=== PATIENT | male | born 1990 | race Caucasian/White ===

== ENCOUNTER 2017-06-17 08:11 | Emergency (ER) | payer BC, OTHER ==
[2017-06-17] MEDS ORDERED: KETOROLAC 30 MG/ML INJ ONE (09:50)
[2017-06-17] MEDS ORDERED: DIAZEPAM 10 MG/2 ML INJ SYRINGE ONE (09:51)
[2017-06-17 10:02] LABS: Urine Blood NEGATIVE (NEG); Urine Glucose NEGATIVE (NEG); Urine Protein NEGATIVE (NEG); Urine Specific Gravity 1.025 (1.005-1.030)
--- NOTE | 2017-06-17 10:19 | RAD REPORT ---
EXAM DESCRIPTION: CT - Spine Lumbar Wo Con - 06/17/2017 9:56 am CLINICAL HISTORY: Trauma, back pain, radiculopathy. COMPARISON: None. TECHNIQUE: Axial noncontrast CT imaging of the lumbar spine was performed with coronal and sagittal re-formatted images. All CT scans are performed using dose optimization technique as appropriate and may include automated exposure control or mA/KV adjustment according to patient size. FINDINGS: No acute lumbar spine fracture seen. No aggressive marrow pattern or malalignment. Evidenc e of previous right hemilaminectomy at L5. Paraspinal tissues are normal in thickness. No paraspinal abscess or hematoma seen. Posterior disc bulge asymmetric to the left is present at L4-5. 3-4 mm disc bulge small endplate oste ophytes at L5-S1. Within these limitations, no high-grade canal stenosis suspected. IMPRESSION: No acute lumbar spine findings. Prominent posterior disc bulges suspected at L4-5 and L5-S1. Right hemilaminectomy at L5. Consider MRI follow-up for assessment of disc disease if clinically desired.
[2017-06-17 10:32] LABS: Absolute Lymphocytes (CBC) 1.3 K/uL (0.7-4.9); Absolute Monocytes 0.4 K/uL (0.1-1.3); Absolute Neutrophil 2.9 K/uL (1.8-8.0); Basophils % 0.9 % (0-1.3); Eosinophils % 1.2 % (0-4.4); Hematocrit 44.9 % (39.6-49.0); Lymphocytes % 27.9 % (15.3-44.8); MCH 32.4 pg (27.0-35.0); MCV 92.3 fL (80-100); MPV 8.8 fL (7.6-11.3); Monocytes % 8.2 % (3.3-12.3); RBC Red Blood Cell Count 4.86 M/uL (4.33-5.43)
[2017-06-17] MEDS ORDERED: DEXAMETHASONE 10 MG/ML VIAL ONE (10:34)
[2017-06-17] MEDS ORDERED: FENTANYL CITR 100 MCG/2 ML ONE (10:35)
[2017-06-17 10:45] LABS: Albumin 4.7 g/dL (3.2-5.5); Bilirubin Total 1.6 mg/dL (0.3-1.2); Protein, Total 7.2 g/dL (6.0-8.3)
[2017-06-17 10:57] LABS: Urine Bacteria <20 /HPF (NONE SEEN); Urine Culture Reflex Order NOT NEEDED; Urine RBC <5 /HPF (NONE SEEN)
--- NOTE | 2017-06-17 11:43 | EDPHYS ---
Physician Documentation [facility] Name: Kyrie Brandon Jr Age: 27 yrs Sex: Male : 1990 Arrival Date: 06/17/2017 Time: 08:14 Bed 10 Private MD: None, None ED Physician Maury Herrera HPI: 06/17 11:28 This 27 yrs old Male presents to ER via Ambulatory with complaints of Back wa Pain. 11:28 The patient presents with pain that is acute, and an injury. The symptoms are located wa in the low back, radiates down L leg. Onset: The symptoms/episode began/occurred 3 day(s) ago. The pain radiates to the R leg. Associated signs and symptoms: Pertinent positives: nausea, tingling, down R leg, Pertinent negatives: abdominal pain, dysuria, incontinence, nausea, vomiting, weakness. The problem was sustained when lifting heavy object. Modifying factors: The patient symptoms are alleviated by nothing, the patient symptoms are aggravated by lifting, movement, walking. Severity of symptoms: At their worst the symptoms were moderate, in the emergency department the symptoms are actually worse, moderately. The patient has experienced similar episodes in the past. The patient has not recently seen a physician. Historical: - Allergies: 08:41 No Known Allergies; iw - Home Meds: 08:41 None [Active]; iw - PMHx: 08:41 None; iw - PSHx: 08:41 Back surgery; iw - Immunization history:: Adult Immunizations up to date. - Social history:: Smoking status: Patient uses tobacco products, vape. - Family history:: not pertinent. - Hospitalizations: : No recent hospitalization is reported. ROS: 11:36 Constitutional: Negative for fever, chills, and weight loss, Eyes: Negative for injury, wa pain, redness, and discharge, ENT: Negative for injury, pain, and discharge, Neck: Negative for injury, pain, and swelling, Cardiovascular: Negative for chest pain, palpitations, and edema, Respiratory: Negative for shortness of breath, cough, wheezing, and pleuritic chest pain, Abdomen/GI: Negative for abdominal pain, nausea, vomiting, diarrhea, and constipation, : Negative for injury, bleeding, discharge, and swelling, MS/Extremity: Negative for injury and deformity, Skin: Negative for injury, rash, and discoloration. 11:36 Back: Positive for pain with movement, radiated pain, Negative for injury or acute deformity. 11:36 Neuro: Positive for numbness, tingling, of the Right leg. Exam: 11:38 Constitutional: This is a well developed, well nourished patient who is awake, alert, wa and in no acute distress. Head/Face: Normocephalic, atraumatic. Eyes: Pupils equal round and reactive to light, extra-ocular motions intact. Lids and lashes normal. Conjunctiva and sclera are non-icteric and not injected. Cornea within normal limits. Periorbital areas with no swelling, redness, or edema. ENT: Nares patent. No nasal discharge, no septal abnormalities noted. Tympanic membranes are normal and external auditory canals are clear. Oropharynx with no redness, swelling, or masses, exudates, or evidence of obstruction, uvula midline. Mucous membranes moist. Neck: Trachea midline, no thyromegaly or masses palpated, and no cervical lymphadenopathy. Supple, full range of motion without nuchal rigidity, or vertebral point tenderness. No Meningismus. Cardiovascular: Regular rate and rhythm with a normal S1 and S2. No gallops, murmurs, or rubs. Normal PMI, no JVD. No pulse deficits. Respiratory: Lungs have equal breath sounds bilaterally, clear to auscultation and percussion. No rales, rhonchi or wheezes noted. No increased work of breathing, no retractions or nasal flaring. Abdomen/GI: Soft, non-tender, with normal bowel sounds. No distension or tympany. No guarding or rebound. No evidence of tenderness throughout. Skin: Warm, dry with normal turgor. Normal color with no rashes, no lesions, and no evidence of cellulitis. MS/ Extremity: Pulses equal, no cyanosis. Neurovascular intact. Full, normal range of motion. 11:38 Back: pain, that is moderate, of the lumbar area, sacrum, left low back and right low back, ROM is painful, with all movement, Straight leg raises: pain bilaterally. Vital Signs: 08:42 BP 119 / 65; Pulse 78; Resp 16; Temp 97.5; Pulse Ox 98% ; Weight 83.91 kg; Height 6 ft. iw 3 in. (190.50 cm); Pain 7/10; 10:47 BP 124 / 84; Pulse 58; Resp 16 S; Pulse Ox 100% on R/A; Pain 5/10; iw 08:42 Body Mass Index 23.12 (83.91 kg, 190.50 cm) iw MDM: 09:03 Patient medically screened. mn 11:38 Differential diagnosis: sprain? fracture? consider nerve impingement. sciatica? control wa pain. check CT. reassess. Data reviewed: vital signs, nurses notes, lab test result(s), radiologic studies. Test interpretation: by ED physician or midlevel provider: labs noted wnl. CT noted for no acute process however R side laminectomy changes from previous surgery. Response to treatment: the patient's symptoms have mildly improved after treatment. 06/17 09:21 Order name: CBC with Diff; Complete Time: 11:06 mn 06/17 09:21 Order name: CMP; Complete Time: 11: mn 06/17 09:21 Order name: Urine Microscopic Only; Complete Time: 11: mn 06/17 09:21 Order name: CT Lumbar Spine Wo Con; Complete Time: 10:23 mn 06/17 09:48 Order name: Urine Dipstick--Ancillary (enter results); Complete Time: 10:15 [facility] 06/17 09:21 Order name: IV Start; Complete Time: 10:14 mn 06/17 09:21 Order name: Urine Dipstick-Ancillary (obtain specimen); Complete Time: 09:49 mn Administered Medications: 10:02 Drug: Valium 5 mg Route: IVP; Site: right antecubital; iw 11:00 Follow up: Response: No adverse reaction iw 10:02 Drug: TORadol 30 mg Route: IVP; Site: right antecubital; iw 11:00 Follow up: Response: No adverse reaction; Pain is decreased iw 10:47 Drug: fentaNYL (PF) 75 mcg Route: IVP; Site: right antecubital; iw 12:00 Follow up: Response: No adverse reaction; Pain is decreased iw 10:48 Drug: Decadron - Dexamethasone 10 mg Route: IVP; Site: right antecubital; iw 12:00 Follow up: Response: No adverse reaction; Pain is decreased iw Disposition: 06/17/17 11:42 Discharged to Home. Impression: Acute on Chronic Low Back Pain with Right Lower Extremity radiculopathy. - Condition is Stable. - Discharge Instructions: Back Pain, Adult, [id number]. - Prescriptions for Ibuprofen 600 mg Oral Tablet - take 1 tablet by ORAL route every 6 hours As needed take with food; 30 tablet. Valium 5 mg Oral Tablet - take 1 tablet by ORAL route At bedtime As needed; 5 tablet. - Work release form, Medication Reconciliation Form, Thank You Letter, Antibiotic Education, Prescription Opioid Use form. - Follow up: Yuri Roach MD; When: 2 - 3 days; Reason: Re-evaluation by your physician. - Problem is an acute exacerbation. - Symptoms have improved. - Notes: take medication as prescribed. follow up with the orthopedist for further evaluation Signatures: Dispatcher [employer] EDKimber Patel RN RN iw Smith Hussein PA PA cp Appiah, William, MD MD wa Corrections: (The following items were deleted from the chart) 12:02 11:42 06/17/2017 11:42 Discharged to Home. Impression: Acute on Chronic Low Back Pain iw with Right Lower Extremity radiculopathy. Condition is Stable. Forms are Medication Reconciliation Form, Thank You Letter, Antibiotic Education, Prescription Opioid Use. Follow up: Yuri Roach; When: 2 - 3 days; Reason: Re-evaluation by your physician. Problem is an acute exacerbation. Symptoms have improved. joel
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
== END 2017-06-17 12:02 | disposition home or self-care (01) ==
LOC: ER 08:11
DX: M54.10 Radiculopathy, site unspecified (principal); X50.0XXA Overexertion from strenuous movement or load, initial encounter; Y93.9 Activity, unspecified; Y92.9 Unspecified place or not applicable; Z72.0 Tobacco use
CPT/HCPCS: 36415; 72131; 80053; 81003; 81015; 85025; 96374; 96375; 99284; J1100; J3010; J3360

== ENCOUNTER 2022-02-12 22:11 | Emergency (ER) | payer BC, OTHER ==
[2022-02-12] MEDS ORDERED: HYDROCODONE/APAP 10/325 TAB ONE (22:25)
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
[2022-02-13] MEDS ORDERED: MORPHINE 4 MG/ML SYR ONE (00:23)
[2022-02-13] MEDS ORDERED: IBUPROFEN 400 MG TAB ONE (00:23)
[2022-02-13] MEDS ORDERED: IBUPROFEN 200 MG TAB PO ONE (00:23)
[2022-02-13 01:12] VITALS: BP 179/92; O2SAT 98
--- NOTE | 2022-02-13 11:28 | RAD REPORT ---
EXAM DESCRIPTION: RAD - Ankle Left 3 View - 02/12/2022 10:49 pm CLINICAL HISTORY: 31-year-old male status post injury. TECHNIQUE: Three views LEFT ankle were obtained in AP, lateral and oblique projections. COMPARISON: None. FINDINGS: There is no fracture or dislocation. The joint spaces are preserved. No soft tissue abnorm alities are seen. IMPRESSION: No acute radiographic abnormality. Electronically signed by: Charis Chacon MD 02/12/2022 11:21 PM OPERATING ROOM NURSE Due to temporary technical issues with the PACS/Fluency reporting system, reports are being signed by the in house radiologists without review as a courtesy to insure prompt reporting. The interpreting radiologist is fully responsible for the content of the report.
== END 2022-02-13 00:33 | disposition home or self-care (01) ==
LOC: ER 22:11
DX: S93.402A Sprain of unspecified ligament of left ankle, initial encounter (principal)
CPT/HCPCS: 96372; 99284